=== PATIENT | male | born 1950 | race Caucasian/White ===

== ENCOUNTER 2020-11-04 20:08 | Emergency (ER) | payer MEDICARE, OTHER ==
[~2020-11-04] VITALS: Ht 175.3 cm; Wt 81.7 kg
[2020-11-09] MEDS ORDERED: NEURONTIN300 MG PO (20:05)
[2020-11-09] MEDS ORDERED: NORTRIPTYLINE H PO (20:06)
[2020-11-09] MEDS ORDERED: Prinivil10 MG PO (20:06)
[2020-11-09] MEDS ORDERED: PANTOPRAZOLE SO40 M2 PO (20:07)
[2020-11-09] MEDS ORDERED: Aspir 8181 MG PO (20:13)
[2020-11-10] MEDS ORDERED: MELATONIN5 M1 PO (01:40)
[2020-11-10] MEDS ORDERED: CENTRUM SILVER1 EAC2 PO (01:40)
== END 2020-11-04 21:27 | disposition home or self-care (01) ==
LOC: ER 20:08
DX: U07.1 COVID-19 (principal)
CPT/HCPCS: 71045; 99285-25

== ENCOUNTER 2020-11-06 16:51 | Emergency (ER) | payer MEDICARE, OTHER ==
[~2020-11-06] VITALS: Ht 175.3 cm; Wt 81.7 kg
[2020-11-06 18:02] LABS: BASOPHILS ABSOLUTE AUTO 0.02 K/mm3 (0.00-0.23); BASOPHILS PERCENT AUTO 1 % (0-2); EOSINOPHILS PERCENT AUTO 0 % (0-6); Hematocrit 43.1 % (37.0-53.0); Hemoglobin 14.8 g/dL (13.5-17.5); IMMATURE GRAN ABSOLUTE AUTO 0.01 K/mm3 (0.00-0.10); IMMATURE GRAN PERCENT AUTO 0 % (0-1); LYMPHOCYTES ABSOLUTE AUTO 0.66 K/mm3 (0.84-5.20); LYMPHOCYTES PERCENT AUTO 15 % (21-46); MONOCYTES PERCENT AUTO 9 % (4-13); Mean Corpuscular HGB 29.5 pg (26.0-34.0); Mean Corpuscular HGB Conc 34.3 g/dL (31.5-36.5); Mean Corpuscular Volume 86 fL (80-100); Mean Platelet Volume 10.9 fL (9.1-12.4); NEUTROPHILS ABSOLUTE AUTO 3.24 K/mm3 (1.96-9.15); NEUTROPHILS PERCENT AUTO 75 % (41-73); Platelet Count 247 K/mm3 (150-400); RDW Standard Deviation 40.6 fL (35.1-46.3); Red Blood Cell Count 5.02 M/mm3 (4.30-5.90); White Blood Cell Count 4.33 K/mm3 (4.00-11.30)
[2020-11-06 18:59] LABS: Alanine Aminotransfer (ALT/SGP 36 U/L (12-78); Albumin, Blood 2.8 g/dL (3.4-5.0); Albumin/Globulin Ratio 0.7 (0.8-1.8); Alk Phos 73 U/L (50-136); Anion Gap 5 mmol/L (6-16); Aspartate Aminotrans (AST/SGOT 60 U/L (12-37); Bilirubin, Total 0.3 mg/dL (0.1-1.0); Blood Urea Nitrogen 15 mg/dL (8-24); Bun/Creatinine Ratio 19.2 (12.0-20.0); CO2, Blood 22 mmol/L (21-32); Calcium, Blood 8.3 mg/dL (8.5-10.1); Chloride, Blood 106 mmol/L (98-108); Creatinine, Blood 0.78 mg/dL (0.60-1.20); Globulin, Blood 3.8 g/dL (2.2-4.0); Glomerular Filtration Rate >60 (60-); Glucose, Blood 100 mg/dL (70-99); Potassium, Blood 4.8 mmol/L (3.5-5.5); Sodium, Blood 133 mmol/L (136-145); Total Protein, Blood 6.6 g/dL (6.4-8.2); Troponin I <0.015 ng/mL (0.000-0.040)
[2020-11-06] MEDS ORDERED: IBUP600 PO (20:25)
[2020-11-06] MEDS ORDERED: ONDA4ODT MM (20:25)
[2020-11-09] MEDS ORDERED: NEURONTIN300 MG PO (20:05)
[2020-11-09] MEDS ORDERED: NORTRIPTYLINE H PO (20:06)
[2020-11-09] MEDS ORDERED: Prinivil10 MG PO (20:06)
[2020-11-09] MEDS ORDERED: PANTOPRAZOLE SO40 M2 PO (20:07)
[2020-11-09] MEDS ORDERED: Aspir 8181 MG PO (20:13)
[2020-11-10] MEDS ORDERED: CENTRUM SILVER1 EAC2 PO (01:40)
[2020-11-10] MEDS ORDERED: MELATONIN5 M1 PO (01:40)
== END 2020-11-06 21:08 | disposition home or self-care (01) ==
LOC: ER 16:51
PROVIDERS: Emergency Medicine
DX: U07.1 COVID-19 (principal)
CPT/HCPCS: 71045; 80053; 84484; 85025; 93005; 93010; 96374; 99284-25; J2405; J7030

== ENCOUNTER 2020-11-09 17:12 | Inpatient (IN) | payer MEDICARE, OTHER ==
[~2020-11-09] VITALS: Ht 175.3 cm; Wt 77.2 kg
[~2020-11-09 17:12] MED LIST: IBUP600 PO; ONDA4ODT MM
[2020-11-09 18:56] LABS: Hematocrit 43.3 % (37.0-53.0); Hemoglobin 15.1 g/dL (13.5-17.5); Mean Corpuscular HGB 29.7 pg (26.0-34.0); Mean Corpuscular HGB Conc 34.9 g/dL (31.5-36.5); Mean Corpuscular Volume 85 fL (80-100); Mean Platelet Volume 10.2 fL (9.1-12.4); Platelet Count 396 K/mm3 (150-400); RDW Coefficient Variation 12.7 % (11.7-14.2); RDW Standard Deviation 39.4 fL (35.1-46.3); Red Blood Cell Count 5.08 M/mm3 (4.30-5.90); White Blood Cell Count 8.89 K/mm3 (4.00-11.30)
[2020-11-09 19:25] LABS: Alanine Aminotransfer (ALT/SGP 40 U/L (12-78); Albumin, Blood 2.8 g/dL (3.4-5.0); Albumin/Globulin Ratio 0.6 (0.8-1.8); Alk Phos 108 U/L (50-136); Anion Gap 8 mmol/L (6-16); Aspartate Aminotrans (AST/SGOT 63 U/L (12-37); Bilirubin, Total 0.8 mg/dL (0.1-1.0); Blood Urea Nitrogen 23 mg/dL (8-24); Bun/Creatinine Ratio 24.8 (12.0-20.0); CO2, Blood 22 mmol/L (21-32); Calcium, Blood 9.2 mg/dL (8.5-10.1); Chloride, Blood 103 mmol/L (98-108); Creatinine, Blood 0.93 mg/dL (0.60-1.20); Globulin, Blood 4.7 g/dL (2.2-4.0); Glomerular Filtration Rate >60 (60-); Glucose, Blood 125 mg/dL (70-99); Potassium, Blood 4.5 mmol/L (3.5-5.5); Sodium, Blood 133 mmol/L (136-145); Total Protein, Blood 7.5 g/dL (6.4-8.2)
[2020-11-09 19:30] LABS: C-REACTIVE PROTEIN, EXT RANGE >19.000 mg/dL (0.000-0.300)
[2020-11-09 19:35] LABS: BAND PERCENT MAN 1 % (0-8); BASOPHILS PERCENT MAN 0 % (0-2); EOSINOPHILS PERCENT MAN 0 % (0-6); LYMPHOCYTES % ATYPICAL MANUAL 1 % (0-0); LYMPHOCYTES ABSOLUTE MAN 0.62 K/mm3 (0.84-5.20); LYMPHOCYTES PERCENT MAN 6 % (21-46); MONOCYTES ABSOLUTE MAN 0.44 K/mm3 (0.16-1.47); MONOCYTES PERCENT MAN 5 % (4-13); NEUTROPHILS ABSOLUTE MAN 7.82 K/mm3 (1.96-9.15); SEG NEUTROPHILS PERCENT MAN 87 % (41-73); TOTAL CELLS COUNTED 100
[2020-11-09] MEDS ORDERED: PLAVIX75 MG PO (20:04)
[2020-11-09] MEDS ORDERED: FLUTICASONE-SA1 EAC9 INH (20:04)
[2020-11-09] MEDS ORDERED: PRAVASTATIN SOD40 MG PO (20:05)
[2020-11-09] MEDS ORDERED: VERAPAMIL SR240 M1 PO (20:05)
[2020-11-09] MEDS ORDERED: NEURONTIN300 MG PO ×2 (20:05)
[2020-11-09] MEDS ORDERED: NORTRIPTYLINE H PO ×2 (20:06)
[2020-11-09] MEDS ORDERED: Prinivil10 MG PO ×2 (20:06)
[2020-11-09] MEDS ORDERED: DICL75ER PO (20:06)
[2020-11-09] MEDS ORDERED: Ativan1 MG PO (20:07)
[2020-11-09] MEDS ORDERED: PANTOPRAZOLE SO40 M2 PO ×2 (20:07)
[2020-11-09] MEDS ORDERED: Aspir 8181 MG PO ×2 (20:13)
[2020-11-09 21:43] LABS: CHOL/HDL RATIO 6.9; Cholesterol 138 mg/dL (50-200); HDL Cholesterol 20 mg/dL (>39); LDL/HDL RATIO 3.7; Low Density Lipoprotein Chol 74 mg/dL (0-110); Triglycerides 222 mg/dL (30-160); Very Low Density Lipoprot Chol 44 mg/dL (6-32)
[2020-11-10 00:15] LABS: International Normalized Ratio 1.05; Prothrombin Time Results 11.3 Sec (9.7-11.5)
--- NOTE | 2020-11-10 01:32 | NUR ---
PT ADMITTED TO FLOOR FROM ER. PT IS AMBULATORY. DA STERLING BEGINNING ADMIT PROCESS.
[2020-11-10] MEDS ORDERED: CENTRUM SILVER1 EAC2 PO ×2 (01:40)
[2020-11-10] MEDS ORDERED: MELATONIN5 M1 PO ×2 (01:40)
--- NOTE | 2020-11-10 02:53 | NUR ---
PT HERE DUE TO COVID + - PT REPORTS HE WAS DIAGNOSED WITH COVID ON 11/01 - PT IN DROPLET ISOLATION. HEPARIN INFUSING PER ORDERS. VSS. PT ON 10.5 L VIA OXIMYZER - SATS 91%. PT REPORTS A POOR APPETITE. PT DENIES ANY PAIN, DENIES CHEST PAIN. CALL LIGHT WITHIN REACH. BED IN LOW POSITION. FLUIDS AT BEDSIDE.
[2020-11-10 06:09] LABS: BASOPHILS ABSOLUTE AUTO 0.03 K/mm3 (0.00-0.23); BASOPHILS PERCENT AUTO 0 % (0-2); EOSINOPHILS PERCENT AUTO 0 % (0-6); Hematocrit 45.6 % (37.0-53.0); Hemoglobin 15.1 g/dL (13.5-17.5); Mean Corpuscular HGB Conc 33.1 g/dL (31.5-36.5); Mean Corpuscular Volume 88 fL (80-100); Mean Platelet Volume 10.6 fL (9.1-12.4); Platelet Count 386 K/mm3 (150-400); RDW Standard Deviation 41.8 fL (35.1-46.3); Red Blood Cell Count 5.21 M/mm3 (4.30-5.90); White Blood Cell Count 7.04 K/mm3 (4.00-11.30)
[2020-11-10 06:12] LABS: IMMATURE GRAN ABSOLUTE AUTO 0.05 K/mm3 (0.00-0.10); IMMATURE GRAN PERCENT AUTO 1 % (0-1); LYMPHOCYTES ABSOLUTE AUTO 0.88 K/mm3 (0.84-5.20); LYMPHOCYTES PERCENT AUTO 13 % (21-46); MONOCYTES ABSOLUTE AUTO 0.35 K/mm3 (0.16-1.47); MONOCYTES PERCENT AUTO 5 % (4-13); NEUTROPHILS ABSOLUTE AUTO 5.73 K/mm3 (1.96-9.15); NEUTROPHILS PERCENT AUTO 81 % (41-73)
[2020-11-10 06:30] LABS: BASOPHILS PERCENT MAN 0 % (0-2); EOSINOPHILS PERCENT MAN 0 % (0-6); LYMPHOCYTES ABSOLUTE MAN 1.05 K/mm3 (0.84-5.20); LYMPHOCYTES PERCENT MAN 15 % (21-46); MONOCYTES PERCENT MAN 0 % (4-13); NEUTROPHILS ABSOLUTE MAN 5.98 K/mm3 (1.96-9.15); SEG NEUTROPHILS PERCENT MAN 85 % (41-73); TOTAL CELLS COUNTED 40
[2020-11-10 06:38] LABS: Anion Gap 10 mmol/L (6-16); Blood Urea Nitrogen 29 mg/dL (8-24); Bun/Creatinine Ratio 33.9 (12.0-20.0); CO2, Blood 22 mmol/L (21-32); Chloride, Blood 104 mmol/L (98-108); Creatinine, Blood 0.86 mg/dL (0.60-1.20); Glomerular Filtration Rate >60 (60-); Glucose, Blood 166 mg/dL (70-99); Potassium, Blood 4.3 mmol/L (3.5-5.5); Sodium, Blood 136 mmol/L (136-145)
--- NOTE | 2020-11-10 06:50 | NUR ---
SHIFT SUMMARY - HEPARIN INFUSING WITHOUT DIFFICULTY TO R AC IV SITE. PT URINATED TEA COLORED CLEAR URINE THIS AM - PT SAT ON THE SIDE OF THE BED, AND USED THE URINAL. PT IS SHAKY UPPER EXTREMITIES THIS AM - HE REPORTS THIS HAS BEEN PROGRESSING FOR THE "LAST 2 YEARS." PT DENIES HAVING PARKINSON'S. NO ACUTE CHANGES THROUGHOUT THIS SHIFT. TROPONIN TRENDED DOWNWARD THIS AM. PT DENIED CHEST PAIN. CALL LIGHT WITHIN REACH. BED IN LOW POSITION. FLUIDS AT BEDSIDE.
--- NOTE | 2020-11-10 10:16 | NUR ---
SPO2 outside of room 81%; Pt appeared to be resting quietly in bed, but upon closer investigation, his oxymizer tubing had slipped outside of his nares. Replaced it and increased delivery to 15 l/min. The pt denies any dyspnea, and is lying down in the bed. spo2 improved slightly to 88-90%; Aneesh Hernandez changed the pt from oxymizer to AirVo delivery at this time.
--- NOTE | 2020-11-10 14:00 | NUR ---
Pt has increased oxygen needs this morning. Was switched over to AiRVo. States that he was able to prone himself for an hour or so and tolerated it fine; however, even when he shows hypoxia on the continuous oximetry at 81% he states that he "feels fine" and does not have any dyspnea, and remains lying down in the bed, unaware that he is having a hypoxic episode. Has been having sweats but no fevers. Sinus rhythm by telemetry, blood pressure stable. Condom cath was placed this morning to reduce extra exertion which he has having difficulty with having to stand to urinate frequently. Urine draining is clear, sherrill colored. Appetite good. Heparin gtt infusing through IV right AC. Next ptt scheduled for this afternoon.
--- NOTE | 2020-11-10 17:04 | NUR ---
Pt's was here for a visit. Updated her on the pt's condition, current illness, and treatment. The pt and his express a lot of appreciation for the care which he is receiving. He remains on the AirVo, and has not needed adjustments on the oxygen support since then. He does desaturate with minimal activity, but does not feel dyspneic. AT rest his spo2 has been 94-95% this afternoon/evening. Appetite good, pleasantly conversant. Heparin gtt continues. .
[2020-11-11 04:41] LABS: BASOPHILS ABSOLUTE AUTO 0.02 K/mm3 (0.00-0.23); BASOPHILS PERCENT AUTO 0 % (0-2); EOSINOPHILS PERCENT AUTO 0 % (0-6); Hematocrit 39.3 % (37.0-53.0); Hemoglobin 13.4 g/dL (13.5-17.5); IMMATURE GRAN ABSOLUTE AUTO 0.26 K/mm3 (0.00-0.10); IMMATURE GRAN PERCENT AUTO 1 % (0-1); LYMPHOCYTES ABSOLUTE AUTO 1.26 K/mm3 (0.84-5.20); LYMPHOCYTES PERCENT AUTO 7 % (21-46); MONOCYTES ABSOLUTE AUTO 0.86 K/mm3 (0.16-1.47); MONOCYTES PERCENT AUTO 5 % (4-13); Mean Corpuscular HGB 29.2 pg (26.0-34.0); Mean Corpuscular HGB Conc 34.1 g/dL (31.5-36.5); Mean Corpuscular Volume 86 fL (80-100); Mean Platelet Volume 10.6 fL (9.1-12.4); NEUTROPHILS PERCENT AUTO 87 % (41-73); Platelet Count 538 K/mm3 (150-400); RDW Standard Deviation 40.2 fL (35.1-46.3); Red Blood Cell Count 4.59 M/mm3 (4.30-5.90)
[2020-11-11 05:01] LABS: Anion Gap 6 mmol/L (6-16); Blood Urea Nitrogen 31 mg/dL (8-24); Bun/Creatinine Ratio 43.9 (12.0-20.0); CO2, Blood 24 mmol/L (21-32); Calcium, Blood 8.7 mg/dL (8.5-10.1); Chloride, Blood 108 mmol/L (98-108); Creatinine, Blood 0.71 mg/dL (0.60-1.20); Glomerular Filtration Rate >60 (60-); Glucose, Blood 158 mg/dL (70-99); Potassium, Blood 4.4 mmol/L (3.5-5.5); Sodium, Blood 138 mmol/L (136-145)
--- NOTE | 2020-11-11 06:50 | NUR ---
SHIFT SUMMARY PT IS CURRENTLY ON AIRVO 45 L 55% FIO2, SPO2 94%, PT CONTINUES TO DENY SOB AT REST, SPO2 DROPS SLIGHTLY WHEN GETTING OOB, PT IS ASYMPTOMATIC. POWERGLIDE WAS INSERTED BY THE SHIRT CLEANER DUE TO MULTPILE FAILED IV ATTEMPTS, HEP GTT INFUSING PER EMAR @ 19 U/KG/HR. PT HAS DENIED CP/PRESSURE., VOIDING WNL, CONDOM CATH REMAINS IN PLACE. NO OTHER ACUTE CHANGES NOTED. CALL LIGHT IN REACH
--- NOTE | 2020-11-11 18:16 | NUR ---
Pt alert, oriented, and non-anxious. Did have a slight memory lapse today. He could not remember Dr. Brown rounding today and talking with him. He states that he feels he has so much on his mind. Oxygen requirments stable, still on AirVo, 45 l/min flow and 60% fiO2 this evening. Able to tolerate sitting up in chair, although it made him tired he said, too tired to finish eating his lunch. He sat up in the bed for both breakfast and dinner. Spo2 mainly in 90-93% range while at rest, but noted drops to 86-89% with activity such as talking on phone/eating. Spo2 93% while sitting up in chair today. Encouraged pt to continue activity as much as possible. States he is unable to prone because it causes a lot of neck discomfort for him. Appetite good, voiding using condom catheter.
[2020-11-12 05:03] LABS: BASOPHILS ABSOLUTE AUTO 0.03 K/mm3 (0.00-0.23); BASOPHILS PERCENT AUTO 0 % (0-2); EOSINOPHILS PERCENT AUTO 0 % (0-6); Hematocrit 36.7 % (37.0-53.0); Hemoglobin 12.5 g/dL (13.5-17.5); IMMATURE GRAN ABSOLUTE AUTO 0.32 K/mm3 (0.00-0.10); IMMATURE GRAN PERCENT AUTO 2 % (0-1); LYMPHOCYTES ABSOLUTE AUTO 0.94 K/mm3 (0.84-5.20); LYMPHOCYTES PERCENT AUTO 6 % (21-46); MONOCYTES ABSOLUTE AUTO 0.74 K/mm3 (0.16-1.47); MONOCYTES PERCENT AUTO 5 % (4-13); Mean Corpuscular HGB 29.8 pg (26.0-34.0); Mean Corpuscular HGB Conc 34.1 g/dL (31.5-36.5); Mean Corpuscular Volume 87 fL (80-100); Mean Platelet Volume 10.6 fL (9.1-12.4); NEUTROPHILS ABSOLUTE AUTO 13.03 K/mm3 (1.96-9.15); NEUTROPHILS PERCENT AUTO 87 % (41-73); Platelet Count 547 K/mm3 (150-400); RDW Coefficient Variation 13.2 % (11.7-14.2); RDW Standard Deviation 41.1 fL (35.1-46.3); White Blood Cell Count 15.06 K/mm3 (4.00-11.30)
[2020-11-12 05:30] LABS: Anion Gap 7 mmol/L (6-16); Blood Urea Nitrogen 26 mg/dL (8-24); Bun/Creatinine Ratio 34.9 (12.0-20.0); CO2, Blood 22 mmol/L (21-32); Calcium, Blood 7.9 mg/dL (8.5-10.1); Chloride, Blood 108 mmol/L (98-108); Creatinine, Blood 0.75 mg/dL (0.60-1.20); Glomerular Filtration Rate >60 (60-); Glucose, Blood 137 mg/dL (70-99); Potassium, Blood 4.5 mmol/L (3.5-5.5); Sodium, Blood 137 mmol/L (136-145)
--- NOTE | 2020-11-12 06:36 | NUR ---
SHIFT SUMMARY PATIENT FOUND TO BE A PLESANT MAN WHO IS A&OX4. VSS. ON AIRVO 45L, 60% SATING LOW 90'S. DESATS WITH LITTLE EXERTION BUT ABLE TO RECOVER QUICKLY. OCCASIONAL PRODUCTIVE COUGH WITH BOWMAN SPUTUM. NSR ON THE MONITOR. NO PAIN OR DISTRESS NOTED UPON ASSESSMENT. IV ABX INFUSED PER ORDER. TOLERATING REG DIET BUT POOR APPETITE. CONDOM CATH IN PLACE TO HELP WITH DESAT WITH MOVEMENT. GOOD OUTPUT WITH THIS. HEPARIN DRIP THERAPEUTIC. NO ACUTE CONCERNS AT THIS TIME. WILL CONTINUE TO MONITOR UNTIL REPORT GIVEN TO FRANKIE QUINTANA.
[2020-11-12 11:16] LABS: Alanine Aminotransfer (ALT/SGP 39 U/L (12-78); Albumin, Blood 2.3 g/dL (3.4-5.0); Albumin/Globulin Ratio 0.6 (0.8-1.8); Alk Phos 77 U/L (50-136); Anion Gap 8 mmol/L (6-16); Aspartate Aminotrans (AST/SGOT 38 U/L (12-37); Bilirubin, Total 0.4 mg/dL (0.1-1.0); Blood Urea Nitrogen 26 mg/dL (8-24); Bun/Creatinine Ratio 33.9 (12.0-20.0); CO2, Blood 21 mmol/L (21-32); Chloride, Blood 110 mmol/L (98-108); Creatinine, Blood 0.77 mg/dL (0.60-1.20); Globulin, Blood 3.6 g/dL (2.2-4.0); Glomerular Filtration Rate >60 (60-); Glucose, Blood 132 mg/dL (70-99); Magnesium, Blood 2.6 mg/dL (1.6-2.4); Phosphorus, Blood 3.2 mg/dL (2.5-4.9); Potassium, Blood 4.7 mmol/L (3.5-5.5); Sodium, Blood 139 mmol/L (136-145); Total Protein, Blood 5.9 g/dL (6.4-8.2)
--- NOTE | 2020-11-12 18:30 | NUR ---
SHIFT SUMMARY; ASSUMED CARE AT 0700. A/A/OX4 DURING SHIFT. AIR VO 45L 65%. HIGH FOWLERS THROUGHOUT DAY. SATS MAINTAINED AT 89-92%. MEDICATED PER EMAR. CONDOM CATH IN PLACE DRAINING TO GRAVITY BAG. REPOSITIONS SELF IN BED NEEDED. HEPARIN DC'D AT 1430 PER ORDERS FROM PHARMACY. NO ACUTE CHANGES DURING SHIFT. WILL CONTINUE TO MONITOR AND TREAT UNTIL CHANGE OF SHIFT.
[2020-11-13 04:17] LABS: Hemoglobin 12.9 g/dL (13.5-17.5); Mean Corpuscular HGB 29.7 pg (26.0-34.0); Mean Corpuscular HGB Conc 33.9 g/dL (31.5-36.5); Mean Corpuscular Volume 87 fL (80-100); Mean Platelet Volume 10.5 fL (9.1-12.4); Platelet Count 624 K/mm3 (150-400); RDW Coefficient Variation 13.2 % (11.7-14.2); RDW Standard Deviation 42.2 fL (35.1-46.3); Red Blood Cell Count 4.35 M/mm3 (4.30-5.90); White Blood Cell Count 14.71 K/mm3 (4.00-11.30)
[2020-11-13 04:34] LABS: Anion Gap 6 mmol/L (6-16); BAND PERCENT MAN 8 % (0-8); BASOPHILS PERCENT MAN 0 % (0-2); Blood Urea Nitrogen 27 mg/dL (8-24); Bun/Creatinine Ratio 33.2 (12.0-20.0); CO2, Blood 23 mmol/L (21-32); Calcium, Blood 7.9 mg/dL (8.5-10.1); Chloride, Blood 109 mmol/L (98-108); Creatinine, Blood 0.81 mg/dL (0.60-1.20); EOSINOPHILS PERCENT MAN 0 % (0-6); Glomerular Filtration Rate >60 (60-); Glucose, Blood 131 mg/dL (70-99); LYMPHOCYTES ABSOLUTE MAN 1.02 K/mm3 (0.84-5.20); LYMPHOCYTES PERCENT MAN 7 % (21-46); MONOCYTES ABSOLUTE MAN 0.58 K/mm3 (0.16-1.47); MONOCYTES PERCENT MAN 4 % (4-13); NEUTROPHILS ABSOLUTE MAN 13.09 K/mm3 (1.96-9.15); Potassium, Blood 4.8 mmol/L (3.5-5.5); SEG NEUTROPHILS PERCENT MAN 81 % (41-73); Sodium, Blood 138 mmol/L (136-145); TOTAL CELLS COUNTED 100
--- NOTE | 2020-11-13 05:30 | NUR ---
SHIFT SUMMARY PT IS ALERT AND ORIENTED X4. PT DENIES CHEST PAIN. PT VITALS ARE STABLE AND HAS HAD NO ACUTE CHANGES. PT IS ON AIRVO WITH 66 FIO2 AND 45 LPM AND HAS TOLERATED IT WELL. PT IS A SBA TO THE BS. PT HAS A CONDOM CATH ON AND WHICH IS DRAINING WELL. PT DESATS WITH ANY EXERTION. PT DENIES GENERAL PAIN. CALL LIGHT IS WITHIN REACH.
--- NOTE | 2020-11-13 18:04 | NUR ---
SHIFT SUMMARY; A/A/OX4 THROUGHOUT SHIFT. AIRVO 55L 60%. DESATS WITH EXERTION BUT RECOVERS WITHIN A FEW MINS. UP TO CHAIR AT BEDSIDE FOR MEALS DURING SHIFT. EVALUATED AND WORKED WITH BY PHYSICAL THERAPY. 02 SATS 90-92%. CONDOM CATH IN PLACE DRAINING TO GRAVITY BAG. NO ACUTE CHANGES DURING SHIFT. WILL CONTINUE TO MONITOR AND TREAT UNTIL CHANGE OF SHIFT.
--- NOTE | 2020-11-13 20:45 | NUR ---
ASSUMED CARE OF PATIENT AT APPROXIMATELY 1915 FROM LIANG Nguyen RN. PATIENT ALERT AND ORIENTED X4; ABLE TO TURN SELF IN BED. PATIENT DENIES PAIN, NUMBNESS, TINGLING, DIZZINESS AND NAUSEA. NSR ON TELE; OXYGEN SATURATION ABOVE 90% ON 55LPM AND 60% ON AIRVO. PG S/L. PIV S/L. DESATS WITH ACTIVITY. CONDOM CATH IN PLACE.
[2020-11-14 05:41] LABS: BASOPHILS ABSOLUTE AUTO 0.03 K/mm3 (0.00-0.23); BASOPHILS PERCENT AUTO 0 % (0-2); EOSINOPHILS PERCENT AUTO 0 % (0-6); Hematocrit 40.9 % (37.0-53.0); Hemoglobin 14.1 g/dL (13.5-17.5); IMMATURE GRAN ABSOLUTE AUTO 0.59 K/mm3 (0.00-0.10); IMMATURE GRAN PERCENT AUTO 4 % (0-1); LYMPHOCYTES ABSOLUTE AUTO 0.86 K/mm3 (0.84-5.20); LYMPHOCYTES PERCENT AUTO 6 % (21-46); MONOCYTES ABSOLUTE AUTO 0.43 K/mm3 (0.16-1.47); MONOCYTES PERCENT AUTO 3 % (4-13); Mean Corpuscular HGB 29.9 pg (26.0-34.0); Mean Corpuscular HGB Conc 34.5 g/dL (31.5-36.5); Mean Corpuscular Volume 87 fL (80-100); Mean Platelet Volume 10.1 fL (9.1-12.4); NEUTROPHILS ABSOLUTE AUTO 11.63 K/mm3 (1.96-9.15); NEUTROPHILS PERCENT AUTO 86 % (41-73); Platelet Count 610 K/mm3 (150-400); RDW Coefficient Variation 13.3 % (11.7-14.2); RDW Standard Deviation 41.8 fL (35.1-46.3); Red Blood Cell Count 4.71 M/mm3 (4.30-5.90); White Blood Cell Count 13.54 K/mm3 (4.00-11.30)
[2020-11-14 05:57] LABS: Anion Gap 6 mmol/L (6-16); Blood Urea Nitrogen 26 mg/dL (8-24); Bun/Creatinine Ratio 33.9 (12.0-20.0); CO2, Blood 22 mmol/L (21-32); Calcium, Blood 8.5 mg/dL (8.5-10.1); Chloride, Blood 108 mmol/L (98-108); Creatinine, Blood 0.77 mg/dL (0.60-1.20); Glomerular Filtration Rate >60 (60-); Glucose, Blood 152 mg/dL (70-99); Sodium, Blood 136 mmol/L (136-145)
--- NOTE | 2020-11-14 06:22 | NUR ---
PATIENT SLEPT ABOUT EIGHT HOURS LAST NIGHT. VSS. NO ACUTE CHANGES
--- NOTE | 2020-11-14 17:58 | NUR ---
SHIFT SUMMARY; ASSUMED CARE AT 0700, A/A/OX4 THROUGHOUT SHIFT. UP TO CHAIR AT BEDSIDE MOST OF DAY. AIR VO 50L 54%. SPEAKS IN FULL SENTENCES, DYSPNEA WITH EXERTION WITH QUICK RECOVERY. CONDOM CATH IN PLACE DRAINING CLEAR URINE TO GRAVITY BAG. VSS, SATS 88-91%. NO ACUTE CHANGES DURING SHIFT. WILL CONTINUE TO MONITOR AND TREAT UNTIL CHANGE OF SHIFT.
--- NOTE | 2020-11-14 22:32 | NUR ---
ASSUMED CARE OF PATIENT AT APPROXIMATELY 1905 FROM LIANG Nguyen RN. PATIENT ALERT AND ORIENTED X4; ABLE TO TURN SELF IN BED AND GET UP TO THE CHAIR. PATIENT REPORTS THE SKIN ON HIS CHEST HURTS TO TOUCH; AND REPORTS COUGHING. PATIENT DENIES NUMBNESS, TINGLING, DIZZINESS AND NAUSEA. NSR ON TELE; OXYGEN SATURATION ABOVE 90% ON 50LPM AND 54% ON AIRVO. PG S/L. PIV S/L. DESATS WITH ACTIVITY. CONDOM CATH IN PLACE.
--- NOTE | 2020-11-15 06:23 | NUR ---
NO ACUTE CHANGES; SETTINGS TITRATED DOWN ON AIRVO; PATIENT SLEPT ABOUT NINE HOURS. VSS.
--- NOTE | 2020-11-15 13:36 | NUR ---
ADMIT: 11/09/20 DISCHARGE: DX: COVID-19 CC: kwilcox [facility] CALL: RESIDENCE: home with spouse CAREGIVER: Booker Scott, Spouse / Partner [phone] Chato Scott, Sibling [phone] DX: COPD, CP, CAD, HTN, see list DME: none CCM: none HOME HEALTH: none SUMMARY: 11/15/20- per chart review with Dr. Pickard, no plan for d/c at this time. PT has been ordered and pt currently on high flow O2- 50L. PT is recommending home health at discharge. -tonja
--- NOTE | 2020-11-15 18:33 | NUR ---
SHIFT SUMMARY PT HAS BEEN VERY PLEASANT TODAY. PT HAS REMAINED ON AIRVO CURRENT SETTINGS AT 50L AD 50% FIO2, PT IS MAINTAIN SATURATION AT 93% AT THIS SETTING. WITH ACTIVITY HOWEVER, PT'S SATURATION DECREASES TO AROUND 80%, PT RECOVERS WITHOUT O2 ADJUSTMENT. PT IS ABLE TO INDEPENDENTLY MOVE FROM BED TO CHAIR AND COMPLETE BEDSIDE PHYSICAL THERAPY EXERCISES ASSIGNED. PT IS ALERT AND ORIENTED AND VS ARE OTHERWISE STABLE. PT HAS A CONDOM CATH IN PLACE IT IS DRAINING WELL AND PT HAS SIGNIFICANT OUTPUT. PT DENIES CP AND REPORTS SOB ONLY WITH EXERTION. PT HAS BEEN UP TO THE CHAIR TID AND IS CURRENTLY IN THE CHAIR FINISHING DINNER.
--- NOTE | 2020-11-16 06:39 | NUR ---
SHIFT SUMMARY PATIENT FOUND TO BE A PLESANT MAN WHO IS A&OX4. OVERALL STRENGTH IMPROVED WITH HELP OF PT EXCERSIZE. VSS. ON 50L 43% SATING MID 90'S ALL SHIFT. NO DESATURATIONS NOTED AND IS ACTIVELY WORKING ON PROPER BREATHING TECHNIQUES. STATES THIS HELPS ALOT WITH WOB. NSR ON THE MONITOR. TOLERATING REG DIET. CONDOM CATH IN PLACE DRAINING ADEQUATE URINE. NO PAIN OR DISTRESS NOTED UPON ASSESSMENT. NO ACUTE CONCERNS AT THIS TIME. WILL CONTINUE TO MONITOR UNTIL REPORT GIVEN TO DAYSHIFT RN.
[2020-11-16 12:14] LABS: Anion Gap 8 mmol/L (6-16); Blood Urea Nitrogen 33 mg/dL (8-24); Bun/Creatinine Ratio 42.7 (12.0-20.0); CO2, Blood 21 mmol/L (21-32); Calcium, Blood 8.8 mg/dL (8.5-10.1); Chloride, Blood 104 mmol/L (98-108); Creatinine, Blood 0.77 mg/dL (0.60-1.20); Glomerular Filtration Rate >60 (60-); Glucose, Blood 162 mg/dL (70-99); Magnesium, Blood 2.7 mg/dL (1.6-2.4); Potassium, Blood 5.3 mmol/L (3.5-5.5); Sodium, Blood 133 mmol/L (136-145)
--- NOTE | 2020-11-16 13:18 | NUR ---
11/16/20- per chart review, pt is in Day 6 of hospitalization. It's noted the his demand for O2 is still 50L. PT worked with pt today and they are recommending home health at discharge. -tonja
--- NOTE | 2020-11-16 18:10 | NUR ---
SHIFT SUMMARY PT HAS MAINTAINED O2 SATURATION ABOVE 90% ON 50L AND 46% TODAY. PT WILL DESATURATE WITH ACTIVITY BUT RECOVERS QUICKLY. VS STABLE OTHERWISE. PT COMPLIANT WITH MEDICATIONS. PT UNABLE TO HAVE A BOWEL MOVEMENT AND HAS BEEN STARTED ON BOWEL CARE OF YESTERDAY. PT IS STRUGGLING TO UNDERSTAND HIS OXYGEN REQUIREMENT AND WHY HE CAN'T TITRATE DOWN FASTER. LILIAN NORTON SPENT TIME EXPLAINING TO THE PT THAT HIS OXYGEN REQUIREMENT REMAINS HIGH DUE TO HIS ILLNESS AND IT TAKES TIME TO TITRATE DOWN. PT IS CONCERNED ABOUT NOT GETTING ENOUGH SLEEP. PT IS IN THE CHAIR HAVING DINNER AT THIS TIME
--- NOTE | 2020-11-17 05:50 | NUR ---
PATIENT IS ALERT AND ORIENTATED ABLE TO MAKE NEEDS KNOWN, CALL LIGHT WITHIN REACH, USES BEDSIDE COMMODE INDENPENTLY, CONDOM CATH IN PLACE SKIN IS INTACT, PATENT CLEAR YELLOW URINE. DRESSING CHANGED TO ANA MARIA POWERGLIDE USING STERILE TECHNIQUE. PATIENT AIRVO DECREASE FROM 50L/45% TO 45L/39% , NO COUGHING NOTED, RESTING COMFORTABLY IN BED PATIENT RECEIVED GOOD ADEQUATE SLEEP, PATIENT HAD NEW ORDER THIS EVENING OF MELONTONIN 10MG.
--- NOTE | 2020-11-17 11:03 | NUR ---
PT ALERT AND ORIENTED X4. ON AIRVO AT 45L AND 39% SATING LOW 90'S. TELE SHOWING SINUS WITH HR 70-80'S. DENIES CHEST PAIN/PRESSURE. VITAL SIGNS STABLE. BOWEL TONES PRESENT. PT COMPLAINS OF CONSTIPATION, BOWEL CARE MEDS IN PLACE. NEURO WNL. UP TO CHAIR WITH MEALS. DENIES NEEDS AT THIS TIME. WILL CONTINUE TO MONITOR.
--- NOTE | 2020-11-17 12:27 | NUR ---
VITAL SIGNS REMAIN STABLE. PT UP WORKING ON PHYSICAL THERAPY EXERCISES. UP IN CHAIR FOR MEALS. DENIES NEEDS AT THIS TIME.
--- NOTE | 2020-11-17 19:24 | NUR ---
SHIFT SUMMARY: PT NOW ON 6L HIGH FLOW NASAL CANNULA SATING MID 90'S. DESATS WITH ACTIVITY AND TALKING. ABLE TO RECOVER IN 3 MIN. THRUSH OBSERVED IN MOUTH, NEW ORDERS. VITAL SIGNS REMAIN STABLE. PT INDEPENDENT IN ROOM. USING BSC AND CONDOM CATH IN PLACE. CALL LIGHT IN REACH. DENIES NEEDS AT THIS TIME. REPORTED OFF TO ONCOMING RN.
--- NOTE | 2020-11-18 05:51 | NUR ---
SHIFT SUMMMARY PT A+OX4. PLEASANT AND COOPERATIVE TO CARE. VSS. TOLERATING 6L 02 NC. TELE READS 60'S NSR AND O2 SATS MAINTAINING OVER 90%. RECENT ONSET OF THRUSH MANAGED PER EMAR. URINAL AT BEDSIDE FOR VOIDING. PT EAGER TO GO HOME AND STATES STRUGGLING TO SLEEP PAST FEW NIGHTS. PT LEFT IN BED RESTING WITH CALL ALARM AT SIDE.
--- NOTE | 2020-11-18 09:52 | NUR ---
PT ALERT AND ORIENTED X4. NEURO WNL. PUPILS EQUAL, ROUND, AND REACTIVE. ON 6 L HIGH FLOW NASAL CANNULA SATING LOW-MID 90'S. WHEN TALKING, WALKING, OR MOVING AROUND PATIENT WILL DESAT TO MID 80'S. ABLE TO RECOVER IN 2-3 MIN. TELE SHOWING SINUS WITH HR 70-80'S. DENIES CHEST PAIN/PRESSURE. VITAL SIGNS STABLE. BOWEL TONES PRESENT. BOWEL CARE MEDS IN PLACE. PT EATING WELL. USING URINAL AT BEDSIDE. ANXIOUS TO GET HOME. MOTIVATED IN WORKING ON PHYSICAL THERAPY EXERCISES. THRUSH NOTED IN MOUTH, NYSTATIN SWISH AND SWALLOW IN PLACE. DENIES NEEDS AT THIS TIME. CALL LIGHT IN REACH. WILL CONTINUE TO MONITOR.
--- NOTE | 2020-11-18 13:25 | NUR ---
PATIENT BACK TO BED WITH TWO STAFF DUE TO LINES AND HISTORY OF FALL WHILE IN THE HOPSPITAL.
--- NOTE | 2020-11-18 17:02 | NUR ---
11/18/20- per chart review with Dr. Pickard, no plan for d/c. -tonja
--- NOTE | 2020-11-18 17:30 | NUR ---
SHIFT SUMMARY: NO ACUTE CHANGES. PATIENT TITRATED DOWN TO 3L HIGH FLOW NASAL CANNULA SATING LOW-MID 90'S. WHEN UP OR TALKING PATIENT DESATS TO MID 80'S. ABLE TO RECOVER IN 2 MIN. TELE REMAINS UNCHANGED. ABLE TO WORK WITH PHYSICAL THERAPY TODAY, VERY MOTIVATED TO DO EXERCISES. SHOWER AFTER LUNCH. PATIENT STATES HE IS FEELING MUCH BETTER AND ANXIOUS TO GET HOME. BOWEL MOVEMENT TODAY. THRUSH IN MOUTH IMPROVED SINCE YESTERDAY. CALL LIGHT IN REACH. EATING DINNER AT THIS TIME. DENIES NEEDS.
[2020-11-19 04:40] LABS: BASOPHILS ABSOLUTE AUTO 0.02 K/mm3 (0.00-0.23); BASOPHILS PERCENT AUTO 0 % (0-2); EOSINOPHILS PERCENT AUTO 0 % (0-6); Hematocrit 45.9 % (37.0-53.0); Hemoglobin 15.3 g/dL (13.5-17.5); IMMATURE GRAN ABSOLUTE AUTO 0.22 K/mm3 (0.00-0.10); IMMATURE GRAN PERCENT AUTO 2 % (0-1); LYMPHOCYTES ABSOLUTE AUTO 0.68 K/mm3 (0.84-5.20); LYMPHOCYTES PERCENT AUTO 6 % (21-46); MONOCYTES ABSOLUTE AUTO 0.88 K/mm3 (0.16-1.47); MONOCYTES PERCENT AUTO 7 % (4-13); Mean Corpuscular HGB 29.3 pg (26.0-34.0); Mean Corpuscular HGB Conc 33.3 g/dL (31.5-36.5); Mean Corpuscular Volume 88 fL (80-100); Mean Platelet Volume 10.6 fL (9.1-12.4); NEUTROPHILS ABSOLUTE AUTO 10.42 K/mm3 (1.96-9.15); NEUTROPHILS PERCENT AUTO 85 % (41-73); Platelet Count 479 K/mm3 (150-400); RDW Coefficient Variation 13.6 % (11.7-14.2); RDW Standard Deviation 43.3 fL (35.1-46.3); Red Blood Cell Count 5.22 M/mm3 (4.30-5.90); White Blood Cell Count 12.22 K/mm3 (4.00-11.30)
[2020-11-19 05:00] LABS: Anion Gap 3 mmol/L (6-16); Blood Urea Nitrogen 35 mg/dL (8-24); Bun/Creatinine Ratio 36.4 (12.0-20.0); CO2, Blood 27 mmol/L (21-32); Calcium, Blood 8.7 mg/dL (8.5-10.1); Chloride, Blood 103 mmol/L (98-108); Creatinine, Blood 0.96 mg/dL (0.60-1.20); Glomerular Filtration Rate >60 (60-); Glucose, Blood 153 mg/dL (70-99); Potassium, Blood 5.4 mmol/L (3.5-5.5); Sodium, Blood 133 mmol/L (136-145)
--- NOTE | 2020-11-19 05:24 | NUR ---
SHIFT SUUMARY NO ACUTE CHANGES THIS SHIFT. VSS. REMAINS AXO, IN SR, ON 3LNC WITH SPO2 >90%. PT COMPLETING RESPIRATORY EXCERCISES WHEN NOT SLEEPING. PG FLUSHES BUT DOES NOT DRAW BLOOD. REMAINS IN ISOLATION. PT OPTIMISTIC FOR DC TODAY. INDEPENDENT IN ROOM. WCTM.
--- NOTE | 2020-11-19 07:45 | NUR ---
PT SITTING UP IN RECLINER CHAIR STATED WITH ACTIVITY HE HAS SOB AND RECOVERY TAKES 2 MIN BIOX IS 91 TO 93 ON 3 L NC MIN PRODUCTIVE COUGH STATED HE FELT GOOD AND WAS ABLE TO GET A SHOWER YESTERDAY HIS BACK HURTS FROM LAYING IN THAT BED
--- NOTE | 2020-11-19 09:32 | NUR ---
MEDS GIVEN AWAITING DR JARED LAYNE
--- NOTE | 2020-11-19 11:09 | NUR ---
DR KEARNEY BY TO SEE PT
--- NOTE | 2020-11-19 11:42 | NUR ---
talked with animal care worker about sx pt sleeping asked if we could let him sleep vs repositioning at this time
--- NOTE | 2020-11-19 12:30 | NUR ---
RECHECK OF BIOX PT CURRENTLY ON 2 L NC BIOX 91% SITTING UP EATING LUNCH STATED HE WANTS TO TAKE A NAP WILL RECHECK AGAIN AFTER HIS NAP IF CONT TO BE ABOVE 90% WILL GO HOME ON 2 L VS 3 L PER
[2020-11-19] MEDS ORDERED: ASCO500 PO ×2 (13:33)
[2020-11-19] MEDS ORDERED: DOCU100 PO ×2 (13:33)
[2020-11-19] MEDS ORDERED: THERA-D2000 UNIT PO ×2 (13:34)
[2020-11-19] MEDS ORDERED: METO25ER PO ×2 (13:34)
[2020-11-19] MEDS ORDERED: CEFP200 PO ×2 (13:35)
[2020-11-19] MEDS ORDERED: ZINC220 PO ×2 (13:35)
[2020-11-19] MEDS ORDERED: XARELTO20 MG PO ×2 (13:36)
--- NOTE | 2020-11-19 15:00 | NUR ---
discharge instructions reviewed with pt verbalized rx called into [facility] pt asked if he can call his to come and get him
--- NOTE | 2020-11-19 16:15 | NUR ---
wc escort to car no acute changes rt by to do a eval for home o2 rec 2 l nc called case mgmt
--- NOTE | 2020-11-19 16:33 | NUR ---
Update 11/19/20: Per chart review, pt. appropriate for discharge. [facility] Pt. scheduled for hospital F/U appt. on 11/23/20 via telehealth due to positive COVID. All other discharge planning complete.
== END 2020-11-19 15:58 | disposition home or self-care (01) | DRG 871 ==
LOC: ER 17:12 → PCU 21:14
PROVIDERS: Family Medicine; Internal Medicine; Pharmacist; Physician Assistant; ADMIT Family Medicine
PROC: 8E0ZXY6 Isolation (ICD-10-PCS; principal; 2020-11-09)
PROC: 5A0955A Assistance with Respiratory Ventilation, Greater than 96 Consecutive Hours, High Flow/Velocity Cannula (ICD-10-PCS; 2020-11-09)
PROC: 3E0333Z Introduction of Anti-inflammatory into Peripheral Vein, Percutaneous Approach (ICD-10-PCS; 2020-11-09)
PROC: XW033E5 Introduction of Remdesivir Anti-infective into Peripheral Vein, Percutaneous Approach, New Technology Group 5 (ICD-10-PCS; 2020-11-09)
DX: A41.89 Other specified sepsis (principal); U07.1 COVID-19; I21.4 Non-ST elevation (NSTEMI) myocardial infarction; J96.01 Acute respiratory failure with hypoxia; J12.82 Pneumonia due to coronavirus disease 2019; E87.1 Hypo-osmolality and hyponatremia; M79.2 Neuralgia and neuritis, unspecified; I25.10 Atherosclerotic heart disease of native coronary artery without angina pectoris; G47.00 Insomnia, unspecified; I10 Essential (primary) hypertension; Z95.5 Presence of coronary angioplasty implant and graft; Z79.82 Long term (current) use of aspirin; Z79.899 Other long term (current) drug therapy
CPT/HCPCS: 36415; 71045; 80048; 80053; 80061; 83605; 83735; 83880; 84100; 84145; 84484; 85025; 85610; 85730; 86140; 87040; 93005; 93010; 94640; 94761; 94762; 96374; 96375; 97110; 97162; 99285-25; A9270; C1751; J0696; J1100; J1644; J1650; J2920; J7050; M0243

== ENCOUNTER → 2020-11-25 | Outpatient (CLI) | payer MEDICARE, OTHER ==
[~2020-11-25] MED LIST changes: +ASCO500 PO; +Aspir 8181 MG PO; +Ativan1 MG PO; +CEFP200 PO; +CENTRUM SILVER1 EAC2 PO; +DICL75ER PO; +DOCU100 PO; +FLUTICASONE-SA1 EAC9 INH; +MELATONIN5 M1 PO; +METO25ER PO; +NEURONTIN300 MG PO; +NORTRIPTYLINE H PO; +PANTOPRAZOLE SO40 M2 PO; +PLAVIX75 MG PO; +PRAVASTATIN SOD40 MG PO; +Prinivil10 MG PO; +THERA-D2000 UNIT PO; +VERAPAMIL SR240 M1 PO; +XARELTO20 MG PO; +ZINC220 PO
[2020-11-25 12:58] LABS: BASOPHILS ABSOLUTE AUTO 0.06 K/mm3 (0.00-0.23); BASOPHILS PERCENT AUTO 0 % (0-2); EOSINOPHILS ABSOLUTE AUTO 0.04 K/mm3 (0.00-0.68); EOSINOPHILS PERCENT AUTO 0 % (0-6); Hematocrit 45.5 % (37.0-53.0); Hemoglobin 15.4 g/dL (13.5-17.5); IMMATURE GRAN ABSOLUTE AUTO 0.23 K/mm3 (0.00-0.10); IMMATURE GRAN PERCENT AUTO 1 % (0-1); LYMPHOCYTES ABSOLUTE AUTO 1.24 K/mm3 (0.84-5.20); LYMPHOCYTES PERCENT AUTO 6 % (21-46); MONOCYTES ABSOLUTE AUTO 1.45 K/mm3 (0.16-1.47); MONOCYTES PERCENT AUTO 7 % (4-13); Mean Corpuscular HGB 30.3 pg (26.0-34.0); Mean Corpuscular HGB Conc 33.8 g/dL (31.5-36.5); Mean Corpuscular Volume 90 fL (80-100); Mean Platelet Volume 11.6 fL (9.1-12.4); NEUTROPHILS ABSOLUTE AUTO 18.07 K/mm3 (1.96-9.15); NEUTROPHILS PERCENT AUTO 86 % (41-73); Platelet Count 262 K/mm3 (150-400); RDW Coefficient Variation 14.8 % (11.7-14.2); RDW Standard Deviation 47.8 fL (35.1-46.3); Red Blood Cell Count 5.08 M/mm3 (4.30-5.90); White Blood Cell Count 21.09 K/mm3 (4.00-11.30)
[2020-11-25 13:14] LABS: Anion Gap 10 mmol/L (6-16); Blood Urea Nitrogen 17 mg/dL (8-24); Bun/Creatinine Ratio 18.7 (12.0-20.0); CO2, Blood 22 mmol/L (21-32); Calcium, Blood 9.4 mg/dL (8.5-10.1); Chloride, Blood 102 mmol/L (98-108); Creatinine, Blood 0.91 mg/dL (0.60-1.20); Glomerular Filtration Rate >60 (60-); Glucose, Blood 90 mg/dL (70-99); Potassium, Blood 5.1 mmol/L (3.5-5.5); Sodium, Blood 134 mmol/L (136-145)
== END | disposition home or self-care (01) ==
LOC: LAB EV 11:58 → LAB SHORT 11:58
PROVIDERS: Physician Assistant Surgical
DX: U07.1 COVID-19 (principal)
CPT/HCPCS: 80048; 85025

== ENCOUNTER 2020-11-26 12:52 | Inpatient (IN) | payer MEDICARE, OTHER ==
[~2020-11-26] VITALS: Ht 175.3 cm; Wt 75.4 kg
[2020-11-26 13:18] LABS: Bicarbonate Venous 22.8 mmol/L (24.0-30.0); PCO2 Venous 39.1 mmHg (38-42); PO2 Venous 32.2 mmHg (38-42); pH Blood Venous 7.39 (7.34-7.37)
[2020-11-26 13:27] LABS: BASOPHILS ABSOLUTE AUTO 0.05 K/mm3 (0.00-0.23); BASOPHILS PERCENT AUTO 0 % (0-2); EOSINOPHILS ABSOLUTE AUTO 0.03 K/mm3 (0.00-0.68); EOSINOPHILS PERCENT AUTO 0 % (0-6); Hematocrit 41.4 % (37.0-53.0); Hemoglobin 13.7 g/dL (13.5-17.5); IMMATURE GRAN ABSOLUTE AUTO 0.21 K/mm3 (0.00-0.10); IMMATURE GRAN PERCENT AUTO 1 % (0-1); LYMPHOCYTES ABSOLUTE AUTO 0.97 K/mm3 (0.84-5.20); LYMPHOCYTES PERCENT AUTO 5 % (21-46); MONOCYTES ABSOLUTE AUTO 0.93 K/mm3 (0.16-1.47); MONOCYTES PERCENT AUTO 5 % (4-13); Mean Corpuscular HGB 29.6 pg (26.0-34.0); Mean Corpuscular HGB Conc 33.1 g/dL (31.5-36.5); Mean Corpuscular Volume 89 fL (80-100); Mean Platelet Volume 11.8 fL (9.1-12.4); NEUTROPHILS ABSOLUTE AUTO 18.36 K/mm3 (1.96-9.15); NEUTROPHILS PERCENT AUTO 90 % (41-73); Platelet Count 294 K/mm3 (150-400); RDW Coefficient Variation 14.6 % (11.7-14.2); RDW Standard Deviation 47.5 fL (35.1-46.3); Red Blood Cell Count 4.63 M/mm3 (4.30-5.90); White Blood Cell Count 20.55 K/mm3 (4.00-11.30)
[2020-11-26 13:47] LABS: Alanine Aminotransfer (ALT/SGP 37 U/L (12-78); Albumin/Globulin Ratio 0.4 (0.8-1.8); Alk Phos 104 U/L (50-136); Anion Gap 5 mmol/L (6-16); Aspartate Aminotrans (AST/SGOT 39 U/L (12-37); Bilirubin, Total 0.7 mg/dL (0.1-1.0); Blood Urea Nitrogen 14 mg/dL (8-24); Bun/Creatinine Ratio 16.1 (12.0-20.0); CO2, Blood 24 mmol/L (21-32); Calcium, Blood 8.8 mg/dL (8.5-10.1); Chloride, Blood 105 mmol/L (98-108); Creatinine, Blood 0.87 mg/dL (0.60-1.20); Globulin, Blood 4.6 g/dL (2.2-4.0); Glomerular Filtration Rate >60 (60-); Glucose, Blood 111 mg/dL (70-99); Potassium, Blood 4.6 mmol/L (3.5-5.5); Sodium, Blood 134 mmol/L (136-145); Total Protein, Blood 6.6 g/dL (6.4-8.2); Troponin I 0.025 ng/mL (0.000-0.040)
[2020-11-26 13:56] LABS: C-REACTIVE PROTEIN, EXT RANGE >19.000 mg/dL (0.000-0.300)
[2020-11-26 13:57] LABS: Source, Urine Catheter
[2020-11-26 14:09] LABS: Appearance, Urine Hazy (Clear); Bilirubin, Urine Neg (Neg); Blood, Urine Neg (Neg); Color, Urine Yellow (P-Yellow); Glucose Qualitative, Urine Neg (Neg); Ketones, Urine Neg (Neg); Leukocyte Esterase, Urine Neg (Neg); Nitrite, Urine Neg (Neg); Protein, Urine 2+ (Neg); Urobilinogen, Urine NORM (Normal)
[2020-11-26 14:16] LABS: White Blood Cells, Urine 0-2 /hpf (0-5)
[2020-11-26 14:17] LABS: Bacteria Few /hpf; Red Blood Cells, Urine 0-2 /hpf (0-2); Squamous Epithelial Cells Rare /hpf (Few)
--- NOTE | 2020-11-26 18:35 | NUR ---
BROUGHT TO ROOM 12 FROM ER ON BIPAP. DYSPNEA WITH DESATURATION WHEN MOVING TO BED FROM [facility]. RECOVERED WITHIN A FEW MINS. A/A/OX4. CONDOM CATH IN PLACE. A/A/OX4, WILL CONTINUE TO MONITOR UNTIL CHANGE OF SHIFT.
--- NOTE | 2020-11-26 22:08 | NUR ---
PT UPDATE ASSUMED CARE FROM GRACIELA QUINTANA. PT A&OX4. SP02>90% ON BIPAP, 03/25 80% FI02. TELEMETRY READS SINUS TACH, HR 101. SHORTLY AFTER CARE ASSUMPTION, PT DESATTED TO 79% MOMENTARILY. RECOVERED BACK TO 88% WITH 2 MIN 100% OXYGENATION. PT CONTINUED TO C/O OF SOB, THOUGH SATS STAYED 90%. RESPIRATIONS 40'S. CALL PLACED TO RT WHO RECOMMENDED CHEST XRAY. CALL PLACED TO MD MIMS. MD MIMS W/ ORDERS FOR CHEST XRAY, ABG, AND BREATHING TREATMENT.
[2020-11-26 22:38] LABS: PCO2 Arterial 26.5 mmHg (35-45); PO2 Arterial 55.2 mmHg (80-100); pH Blood Arterial 7.44 (7.35-7.45)
[2020-11-27 02:43] LABS: Source, Urine Catheter
[2020-11-27 02:48] LABS: Bilirubin, Urine Neg (Neg); Blood, Urine 1+ (Neg); Glucose Qualitative, Urine Neg (Neg); Ketones, Urine Neg (Neg); Leukocyte Esterase, Urine Neg (Neg); Nitrite, Urine Neg (Neg); Protein, Urine 2+ (Neg); Urobilinogen, Urine NORM (Normal)
[2020-11-27 02:54] LABS: Appearance, Urine Clear (Clear); Color, Urine Yellow (P-Yellow)
--- NOTE | 2020-11-27 02:55 | NUR ---
ADMIT NOTE PT IS TRANSFERRED TO ICU 6 FROM PCU AT 0123 FOR RESP FAILURE SECONDARY TO COVID PNA. PT IS CURRENTLY ON BIPAP WITH FIO2 100% WITH SPO2 IN 80'S AND TACHYPNEIC/DYSPNEIC. PERSONNEL CALLED TO BEDSIDE FOR INTUBATION. DR. QUINONES AND RT AT BEDSIDE. PT IS PREMEDICATED WITH KETAMINE AND ROCURONIUM IV AND 8.0 ETT PLACED AT 25CM AT GUM. COLOR CHANGE NOTED ON CO2 DETECTOR AND PLACEMENT VERIFIED BY AUSCULTATION.
--- NOTE | 2020-11-27 03:01 | NUR ---
DEVIN CELAYA CALLED AT 0209. PT DEVELOPED HYPOTENSION AND BRADYCARDIA, THEN LOST PULSES. CPR STARTED AND TEAM CALLED. ROSC ACHIEVED WITH 1 DOSE EPI AND 1 SHOCK FOR VT.
[2020-11-27 03:04] LABS: Amorphous Light (0-Heavy); Bacteria Rare /hpf; Red Blood Cells, Urine 0-2 /hpf (0-2); Squamous Epithelial Cells Few /hpf (Few); White Blood Cells, Urine Not Seen /hpf (0-5)
[2020-11-27 04:09] LABS: BASOPHILS ABSOLUTE AUTO 0.14 K/mm3 (0.00-0.23); BASOPHILS PERCENT AUTO 0 % (0-2); EOSINOPHILS ABSOLUTE AUTO 0.01 K/mm3 (0.00-0.68); EOSINOPHILS PERCENT AUTO 0 % (0-6); Hematocrit 38.4 % (37.0-53.0); Hemoglobin 12.2 g/dL (13.5-17.5); IMMATURE GRAN ABSOLUTE AUTO 0.92 K/mm3 (0.00-0.10); IMMATURE GRAN PERCENT AUTO 3 % (0-1); LYMPHOCYTES ABSOLUTE AUTO 1.66 K/mm3 (0.84-5.20); LYMPHOCYTES PERCENT AUTO 5 % (21-46); MONOCYTES ABSOLUTE AUTO 0.83 K/mm3 (0.16-1.47); MONOCYTES PERCENT AUTO 2 % (4-13); Mean Corpuscular HGB 30.1 pg (26.0-34.0); Mean Corpuscular HGB Conc 31.8 g/dL (31.5-36.5); Mean Platelet Volume 11.7 fL (9.1-12.4); NEUTROPHILS ABSOLUTE AUTO 32.68 K/mm3 (1.96-9.15); NEUTROPHILS PERCENT AUTO 90 % (41-73); Platelet Count 343 K/mm3 (150-400); RDW Standard Deviation 51.9 fL (35.1-46.3); Red Blood Cell Count 4.05 M/mm3 (4.30-5.90); White Blood Cell Count 36.24 K/mm3 (4.00-11.30)
[2020-11-27 04:11] LABS: Mean Corpuscular Volume 95 fL (80-100)
[2020-11-27 04:34] LABS: Anion Gap 11 mmol/L (6-16); Blood Urea Nitrogen 27 mg/dL (8-24); Bun/Creatinine Ratio 20.9 (12.0-20.0); CO2, Blood 21 mmol/L (21-32); Calcium, Blood 9.3 mg/dL (8.5-10.1); Chloride, Blood 107 mmol/L (98-108); Creatinine, Blood 1.29 mg/dL (0.60-1.20); Glomerular Filtration Rate 55 (60-); Glucose, Blood 250 mg/dL (70-99); Potassium, Blood 5.4 mmol/L (3.5-5.5); Sodium, Blood 139 mmol/L (136-145)
--- NOTE | 2020-11-27 04:49 | NUR ---
DEVIN CELAYA CALLED AT 0408, CHEST COMPRESSIONS STARTED. 1 DOSE EPI GIVEN AND PT WAS FOUND TO HAVE ROSC ON FIRST PULSE CHECK. DR. QUINONES REVIEWED POST INTUBATION CHEST XRAY AND DECIDED TO PLACE A CHEST TUBE. CHEST TUBE PLACED ON R SIDE AT 0440 ANDF CONNECTED TO [id number] PLEURAVAC. XRAY ORDERED FOR PLACEMENT.
[2020-11-27 04:59] LABS: C-REACTIVE PROTEIN, EXT RANGE >19.000 mg/dL (0.000-0.300)
--- NOTE | 2020-11-27 06:31 | NUR ---
FINAL CODE NOTE PT'S FAMILY WAS ALL AT THE BEDSIDE. PT LOST PULSE AT 0624, COMPRESSIONS ARE STARTED AT [address] DUARTE DISCUSSES POC AND CODE STATUS. PT'S FAMILY REQUESTS DISCONTINUING EFFORTS AT 0626.
== END 2020-11-27 06:26 | DRG 871 ==
LOC: ER 12:52 → ERHOLD 15:34 → PCU 17:23 → ICUE 11-27 01:23
PROVIDERS: Emergency Medicine; Family Medicine; Internal Medicine; ADMIT Family Medicine
PROC: 5A09357 Assistance with Respiratory Ventilation, Less than 24 Consecutive Hours, Continuous Positive Airway Pressure (ICD-10-PCS; principal; 2020-11-26)
PROC: 8E0ZXY6 Isolation (ICD-10-PCS; 2020-11-26)
PROC: 5A12012 Performance of Cardiac Output, Single, Manual (ICD-10-PCS; 2020-11-27)
PROC: 0W9930Z Drainage of Right Pleural Cavity with Drainage Device, Percutaneous Approach (ICD-10-PCS; 2020-11-27)
PROC: 0BH17EZ Insertion of Endotracheal Airway into Trachea, Via Natural or Artificial Opening (ICD-10-PCS; 2020-11-27)
PROC: 06HM33Z Insertion of Infusion Device into Right Femoral Vein, Percutaneous Approach (ICD-10-PCS; 2020-11-27)
PROC: 3E043XZ Introduction of Vasopressor into Central Vein, Percutaneous Approach (ICD-10-PCS; 2020-11-27)
PROC: 5A1935Z Respiratory Ventilation, Less than 24 Consecutive Hours (ICD-10-PCS; 2020-11-27)
PROC: 5A2204Z Restoration of Cardiac Rhythm, Single (ICD-10-PCS; 2020-11-27)
DX: A41.89 Other specified sepsis (principal); J96.01 Acute respiratory failure with hypoxia; U07.1 COVID-19; J12.82 Pneumonia due to coronavirus disease 2019; I47.2 Ventricular tachycardia; J93.9 Pneumothorax, unspecified; E87.2 Acidosis; I10 Essential (primary) hypertension; N40.0 Benign prostatic hyperplasia without lower urinary tract symptoms; R00.1 Bradycardia, unspecified; I46.9 Cardiac arrest, cause unspecified; E78.5 Hyperlipidemia, unspecified; E88.09 Other disorders of plasma-protein metabolism, not elsewhere classified; G47.00 Insomnia, unspecified; I25.10 Atherosclerotic heart disease of native coronary artery without angina pectoris; Z95.5 Presence of coronary angioplasty implant and graft; Z79.899 Other long term (current) drug therapy; Z79.82 Long term (current) use of aspirin; Z79.01 Long term (current) use of anticoagulants
CPT/HCPCS: 31500; 36415; 36556; 36600; 51702; 71045; 71275; 80048; 80053; 81001; 82803; 83605; 83880; 84145; 84484; 85025; 85379; 85651; 86140; 87040; 92950; 93005; 93010; 93306; 94002; 94640; 94660; 96365-59; 96366-59; 96368; 99285-25; A9270; C1751; J0171; J0692; J1940; J2370; J2704; J2920; J3370; J7030; J7040; J7050; J7060; Q9967